=== PATIENT | female | born 1990 | race Caucasian/White ===

== ENCOUNTER 2022-03-09 23:09 | Emergency (ER) | payer OTHER ==
[~2022-03-09] VITALS: Ht 160 cm; Wt 68.0 kg
[2022-03-09 23:09] VITALS: BP 133/91
--- NOTE | 2022-03-09 23:11 | NUR ---
PT SETH MITTAL, TAKEN TO CHAIR
--- NOTE | 2022-03-09 23:11 | NUR ---
PT BEING EVALUATED BY SUSANA MARTINEZ
[2022-03-09 23:23] VITALS: BP 133/91
--- NOTE | 2022-03-09 23:23 | NUR ---
Patient discharged with v/s stable. Written and verbal after care instructions given and explained. Patient verbalized understanding. Police with in custody. All questions addressed prior to discharge. Advised to follow up with PMD.
--- NOTE | 2022-03-09 23:23 | NUR ---
PATIENT [facility] POLICE DEPT. PATIENT EXAMINED BY DR. MARTINEZ. PATIENT MEDICALLY CLEARED AND RELEASED IN CUSTODY IN STABLE CONDITION. ORIGINAL PRE-BOOK FORM GIVEN TO OFFICER DAVID [id number]
== END 2022-03-09 23:23 ==
LOC: MED 23:09
DX: F41.9 Anxiety disorder, unspecified (principal); Z02.89 Encounter for other administrative examinations; V89.2XXA Person injured in unspecified motor-vehicle accident, traffic, initial encounter; Y93.89 Activity, other specified; Y92.89 Other specified places as the place of occurrence of the external cause; Y99.8 Other external cause status
CPT/HCPCS: 99283